=== PATIENT | female | born 1955 | race Caucasian/White ===

== ENCOUNTER 2016-12-18 19:02 | Emergency (ER) | payer OTHER, SELFPAY ==
[2016-12-18] MEDS ORDERED: Valium 5 MG PO ONE ×2 (19:13→20:14)
--- NOTE | 2016-12-18 19:19 | ERPHSYRPT ---
- History of Present Illness Time Seen by Provider: 12/18/16 19:06 Source: patient Exam Limitations: no limitations Physician History: PT RAN OUT OF HER KLONOPIN 3 DAYS AGO AND 2 DAYS AGO STARTED WITH LEFT ANTERIOR CHEST PAIN, SHORTNESS OF AIR, DIARRHEA, CHILLS, DIAPHORESIS AND COUGH PRODUCTIVE OF CLEAR-YELLOW PHLEGM. Allergies/Adverse Reactions: No Known Drug Allergies Allergy (Verified 12/18/16 19:18) Home Medications: Clonazepam 0.5 mg [Klonopin 0.5 MG] 0.5 mg PO BID 12/18/16 [History] Gabapentin [Neurontin] 600 mg PO TID 12/18/16 [History] Hydrocodone Bit/Acetaminophen [[place] 7.5-325 Tablet] 1 each PO Q4-6HPRN PRN 07/31 [History] Hx Tetanus, Diphtheria Vaccination/Date Given: No Hx Influenza Vaccination/Date Given: No Hx Pneumococcal Vaccination/Date Given: No - Review of Systems Constitutional: Chills Respiratory: Cough, Dyspnea Cardiac: Chest Pain Abdominal/Gastrointestinal: Diarrhea Psychological: Anxiety Endocrine: Excessive Sweating All Other Systems: Reviewed and Negative - Past Medical History Pertinent Past Medical History: Yes Neurological History: Peripheral Neuropathy ENT History: No Pertinent History Cardiac History: No Pertinent History Respiratory History: COPD Endocrine Medical History: No Pertinent History Musculoskeletal History: Other GI Medical History: No Pertinent History History: No Pertinent History Psycho-Social History: Anxiety, Depression Female Reproductive Disorders: No Pertinent History Other Medical History: chronic back pain - Past Surgical History Past Surgical History: Yes Neuro Surgical History: No Pertinent History Cardiac: No Pertinent History Respiratory: No Pertinent History Gastrointestinal: No Pertinent History Genitourinary: No Pertinent History Musculoskeletal: Orthopedic Surgery Female Surgical History: Tubal Ligation Other Surgical History: ankle - Social History Smoking Status: Current every day smoker How long have you smoked: 36 Exposure to second hand smoke: No Drug Use: none Patient Lives Alone: No - Female History Hx Now: No - Nursing Vital Signs Nursing Vital Signs: Initial Vital Signs Temperature 98.4 F 12/18/16 19:06 Pulse Rate 97 H 12/18/16 19:06 Respiratory Rate 22 12/18/16 19:06 Blood Pressure 178/89 12/18/16 19:06 O2 Sat by Pulse Oximetry 95 12/18/16 19:06 Pain Scale Pain Intensity 9 - Physical Exam General Appearance: alert, anxiety Eye Exam: PERRL/EOMI Ears, Nose, Throat Exam: TMs normal, pharynx normal, moist mucous membranes Neck Exam: normal inspection Respiratory Exam: lungs clear, airway intact Cardiovascular Exam: normal heart sounds Gastrointestinal/Abdomen Exam: soft, normal bowel sounds Back Exam: normal range of motion Extremity Exam: normal inspection, No pedal edema Neurologic Exam: alert, cooperative, other (ANXIOUS) Skin Exam: warm, dry - Course Nursing assessment & vital signs reviewed: Yes EKG Interpreted by Me: RATE ([id number]), Sinus Rhythm, NORMAL AXIS, NORMAL INTERVALS Ordered Tests: Active Orders 24 hr Category Date Time Status EKG-ER Only STAT Care 12/18/16 19:13 Active CHEST 2 VIEWS (PA AND LAT) Stat Exams 12/18/16 19:14 Taken AMYLASE Stat Lab 12/18/16 19:30 Completed CBC W DIFF Stat Lab 12/18/16 19:30 Completed CMP Stat Lab 12/18/16 19:30 Completed LIPASE Stat Lab 12/18/16 19:30 Completed MAGNESIUM Stat Lab 12/18/16 19:30 Completed NT PRO BNP Stat Lab 12/18/16 19:30 Completed TROPONIN Q3H Lab 12/18/16 19:30 Completed TROPONIN Q3H Lab 12/18/16 22:15 Ordered TROPONIN Q3H Lab 12/19/16 01:15 Ordered TROPONIN Q3H Lab 12/19/16 04:15 Ordered TROPONIN Q3H Lab 12/19/16 07:15 Ordered UA W/RFX UR CULTURE Stat Lab 12/18/16 20:10 Completed Urine Triage Profile Stat Lab 12/18/16 20:10 Received Medication Summary Generic Name Dose Route Start Last Admin Trade Name Freq PRN Reason Stop Dose Admin Gabapentin 600 mg 12/18/16 22:00 12/18/16 19:55 Neurontin 300 Mg PO 01/17/17 21:59 600 mg HS JESSICA Administration Discontinued Medications Generic Name Dose Route Start Last Admin Trade Name Freq PRN Reason Stop Dose Admin Diazepam 10 mg 12/18/16 19:13 12/18/16 19:23 Valium 5 Mg PO 12/18/16 19:14 10 mg STAT ONE Administration Diazepam Confirm 12/18/16 19:22 Valium 5 Mg Administered 12/18/16 19:23 Dose 10 mg .ROUTE .STK-MED ONE Diazepam 10 mg 12/18/16 20:14 Valium 5 Mg PO 12/18/16 20:15 STAT ONE Lab/Rad Data: Laboratory Result Diagrams 12/18/16 19:30 12/18/16 19:30 Laboratory Results 12/18/16 12/18/16 12/18/16 Range/Units 20:10 19:30 19:30 WBC (4.0-10.5) K/mm3 RBC (4.1-5.4) M/mm3 Hgb (12.0-16.0) gm/dl Hct (35-47) % MCV (78-100) fl MCH (26-32) pg MCHC (32-36) g/dl RDW (11.5-14.0) % Plt Count (150-450) K/mm3 MPV (6-9.5) fl Gran % (36.0-66.0) % Lymphocytes % (24.0-44.0) % Monocytes % (0.0-12.0) % Eosinophils % (0.00-5.0) % Basophils % (0.0-0.4) % Basophils # (0-0.4) Sodium 140 (136-145) mEq/L Potassium 3.7 (3.5-5.1) mEq/L Chloride 103 (98-107) mEq/L Carbon Dioxide 26.6 (21-32) mEq/L Anion Gap 14.5 (5-15) MEQ/L BUN 14 (9-20) mg/dL Creatinine 0.80 (0.55-1.30) mg/dl Estimated GFR > 60 ML/MIN Glucose 107 (70-110) MG/DL Calcium 9.4 (8.5-10.1) mg/dL Magnesium 2.0 (1.8-2.4) mg/dL Total Bilirubin 0.30 (0.2-1.0) mg/dL AST 31 (15-37) U/L ALT 34 (12-78) U/L Alkaline Phosphatase 90 (46-116) U/L Troponin I < 0.017 (0.000-0.056) ng/ml NT-Pro-B Natriuret Pep 158 H (0-125) pg/ml Serum Total Protein 8.0 (6.4-8.2) gm/dL Albumin 4.3 (3.4-5.0) g/dL Amylase 70 (25-115) U/L Lipase 177 (73-393) U/L Ur Collection Type CLEAN CATCH Urine Color YELLOW (YELLOW) Urine Appearance CLEAR (CLEAR) Urine pH 5.0 (5-6) Ur Specific [place] 1.010 (1.005-1.025) Urine Protein NEGATIVE (Negative) Urine Ketones NEGATIVE (NEGATIVE) Urine Blood NEGATIVE (0-5) Abhijeet/ul Urine Nitrite NEGATIVE (NEGATIVE) Urine Bilirubin NEGATIVE (NEGATIVE) Urine Urobilinogen NORMAL (0-1) mg/dL Ur Leukocyte Esterase NEGATIVE (NEGATIVE) Urine Glucose NEGATIVE (NEGATIVE) mg/dL Specimen Received 12/18/16:200912/18/16 Range/Units 19:30 WBC 9.0 (4.0-10.5) K/mm3 RBC 4.63 (4.1-5.4) M/mm3 Hgb 14.3 (12.0-16.0) gm/dl Hct 41.8 (35-47) % MCV 90.3 (78-100) fl MCH 30.9 (26-32) pg MCHC 34.2 (32-36) g/dl RDW 12.7 (11.5-14.0) % Plt Count 275 (150-450) K/mm3 MPV 10.2 H (6-9.5) fl Gran % 67.2 H (36.0-66.0) % Lymphocytes % 22.6 L (24.0-44.0) % Monocytes % 8.2 (0.0-12.0) % Eosinophils % 1.8 (0.00-5.0) % Basophils % 0.2 (0.0-0.4) % Basophils # 0.02 (0-0.4) Sodium (136-145) mEq/L Potassium (3.5-5.1) mEq/L Chloride (98-107) mEq/L Carbon Dioxide (21-32) mEq/L Anion Gap (5-15) MEQ/L BUN (9-20) mg/dL Creatinine (0.55-1.30) mg/dl Estimated GFR ML/MIN Glucose (70-110) MG/DL Calcium (8.5-10.1) mg/dL Magnesium (1.8-2.4) mg/dL Total Bilirubin (0.2-1.0) mg/dL AST (15-37) U/L ALT (12-78) U/L Alkaline Phosphatase (46-116) U/L Troponin I (0.000-0.056) ng/ml NT-Pro-B Natriuret Pep (0-125) pg/ml Serum Total Protein (6.4-8.2) gm/dL Albumin (3.4-5.0) g/dL Amylase (25-115) U/L Lipase (73-393) U/L Ur Collection Type Urine Color (YELLOW) Urine Appearance (CLEAR) Urine pH (5-6) Ur Specific [place] (1.005-1.025) Urine Protein (Negative) Urine Ketones (NEGATIVE) Urine Blood (0-5) Abhijeet/ul Urine Nitrite (NEGATIVE) Urine Bilirubin (NEGATIVE) Urine Urobilinogen (0-1) mg/dL Ur Leukocyte Esterase (NEGATIVE) Urine Glucose (NEGATIVE) mg/dL Specimen Received - Departure Time of Disposition: 20:20 Departure Disposition: Home Clinical Impression: ANXIETY, CHEST PAIN, PN, COPD, DEPRESSION Condition: Stable Critical Care Time: No Referrals: FERNANDA LARA [Primary Care Provider] - Instructions: Anxiety -- Adult, Chest Pain Additional Instructions: FOLLOW UP WITH PRIVATE DOCTOR TOMORROW.
[2016-12-18] MEDS ORDERED: Valium 5 MG ONE ×3 (19:22→20:54)
[2016-12-18 19:34] LABS: BASOPHIL % 0.2 % (0.0-0.4); Eosinophil % 1.8 % (0.00-5.0); Granulocytes % 67.2 % (36.0-66.0); Lymphocytes % 22.6 % (24.0-44.0); Mean Cell Volume 90.3 fl (78-100); Mean Corpuscular Hemoglobin 30.9 pg (26-32); Mean Platelet Volume 10.2 fl (6-9.5); Monocytes % 8.2 % (0.0-12.0); Platelet Count 275 K/mm3 (150-450); Red Blood Count 4.63 M/mm3 (4.1-5.4); Red Cell Distribution Width 12.7 % (11.5-14.0)
[2016-12-18] MEDS ORDERED: NEURONTIN 300 MG ONE (19:43)
[2016-12-18 20:00] LABS: ALBUMIN 4.3 g/dL (3.4-5.0); ALKALINE PHOSPHATASE 90 U/L (46-116); ANION GAP 14.5 MEQ/L (5-15); BLOOD UREA NITROGEN 14 mg/dL (9-20); CHLORIDE 103 mEq/L (98-107); Carbon Dioxide 26.6 mEq/L (21-32); Glucose 107 MG/DL (70-110); LIPASE 177 U/L (73-393); Potassium 3.7 mEq/L (3.5-5.1); SGOT/AST 31 U/L (15-37); SGPT/ALT 34 U/L (12-78); SODIUM 140 mEq/L (136-145)
[2016-12-18 20:16] LABS: Collection Type CLEAN CATCH; Glucose NEGATIVE (NEGATIVE); Leukocyte Esterase NEGATIVE (NEGATIVE)
[2016-12-18 20:17] LABS: ADD URINE CULTURE? NO (NO); Bilirubin NEGATIVE (NEGATIVE); Blood NEGATIVE Ery/ul (0-5); COMPLETE URINE MICROSCOPIC? NO
[2016-12-18 20:58] VITALS: BP 127/85; PULSE 84; O2SAT 95
[2016-12-18] MEDS ORDERED: NEURONTIN 300 MG PO SCH (22:00)
--- NOTE | 2016-12-19 16:10 | XRAY ---
Exam: Two-view chest from 12/18/2016 Comparison: AP portable chest film from 11/10/2015. Indication: Chest pain. Findings: The heart size and contour are normal. A few small granulomatous calcifications are seen within the sarah and right lower lung field representing no change. I also note some small subcarinal granulomatous calcifications. There is mild tortuosity of the descending thoracic aorta. The lungs are adequately expanded. No air space infiltrates, vascular congestion, pneumothorax, or pleural fluid is seen. No acute osseous process is seen. There is minimal convexity of the spine toward the right centered near the thoracolumbar junction. Impression: 1. 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 2. No infiltrates, pneumothorax, CHF, or other acute cardiopulmonary disease is seen.
== END 2016-12-18 21:00 | disposition home or self-care (01) ==
LOC: ED 19:02
DX: F41.9 Anxiety disorder, unspecified (principal); R07.9 Chest pain, unspecified; J18.9 Pneumonia, unspecified organism; J44.9 Chronic obstructive pulmonary disease, unspecified; F32.9 Major depressive disorder, single episode, unspecified; R05 Cough; R06.00 Dyspnea, unspecified; R19.7 Diarrhea, unspecified
CPT/HCPCS: 36415; 71020; 80053; 80307; 81002; 82150; 83690; 83735; 83880; 84484; 85025; 93005; 99284; A9270-GY

== ENCOUNTER 2017-11-28 17:31 | Emergency (ER) | payer OTHER ==
[2017-11-28] MEDS ORDERED: Ativan 2 MG/1 ML VIAL IV ONE (18:42)
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
[2017-11-28 19:03] LABS: BASOPHIL % 0.2 % (0.0-0.4); Basophil (Absolute #) 0.02 (0-0.4); Eosinophil % 2.5 % (0.00-5.0); Eosinophil (Absolute #) 0.21 (0-0.5); Granulocyte Absolute (ANC) 5.25 (1.4-6.9); Granulocytes % 63.5 % (36.0-66.0); Hematocrit 36.4 % (35-47); Hemoglobin 12.2 gm/dl (12.0-16.0); Lymphocyte (Absolute #) 1.98 (1.0-4.6); Lymphocytes % 23.9 % (24.0-44.0); Mean Cell Volume 93.1 fl (78-100); Mean Corpuscular Hemoglobin 31.2 pg (26-32); Mean Corpuscular Hgb Concent. 33.5 g/dl (32-36); Mean Platelet Volume 10.2 fl (6-9.5); Monocyte (Absolute #) 0.82 (0.0-1.3); Monocytes % 9.9 % (0.0-12.0); Platelet Count 184 K/mm3 (150-450); Red Blood Count 3.91 M/mm3 (4.1-5.4); Red Cell Distribution Width 12.5 % (11.5-14.0); White Blood Count 8.3 K/mm3 (4.0-10.5)
[2017-11-28 19:24] LABS: ALBUMIN 4.1 g/dL (3.5-5.0); ALKALINE PHOSPHATASE 61 U/L (38-126); ANION GAP 12.8 MEQ/L (5-15); BILIRUBIN,TOTAL < 0.10 mg/dL (0.2-1.3); BLOOD UREA NITROGEN 13 mg/dL (7-17); CHLORIDE 106 mmol/L (98-107); Calcium 9.2 mg/dL (8.4-10.2); Carbon Dioxide 28 mmol/L (22-30); Creatinine 1 0.55 mg/dL (0.52-1.04); Glucose 100 mg/dL (74-106); Potassium 3.8 mmol/L (3.5-5.1); SGOT/AST 31 U/L (14-36); SGPT/ALT 28 U/L (0-35); SODIUM 143 mmol/L (137-145); Total Protein 6.9 g/dL (6.3-8.2)
[2017-11-28 19:25] LABS: ACETAMINOPHEN < 10 ug/ml (10-30); ETHYL ALCOHOL < 10 mg/dL (0-10); SALICYLATE < 1.0 mg/dL (2-20)
[2017-11-28] MEDS ORDERED: Ativan 2 MG/1 ML VIAL ONE (19:41)
[2017-11-28] MEDS ORDERED: NORCO 5/325 MG PO ONE (20:53)
[2017-11-28] MEDS ORDERED: NORCO 5/325 MG ONE (20:56)
[2017-11-28 21:09] LABS: Amphetamine,Urine NEGATIVE (NEGATIVE); Barbiturate,Urine NEGATIVE (NEGATIVE); Benzodiazepine,Urine NEGATIVE (NEGATIVE); Cocaine,Urine NEGATIVE (NEGATIVE); Methadone,Urine NEGATIVE (NEGATIVE); Opiate,Urine NEGATIVE (NEGATIVE); PCP,Urine NEGATIVE (NEGATIVE); THC,Urine POSITIVE (NEGATIVE)
[2017-11-28 21:14] LABS: Appearance CLEAR (CLEAR); Bilirubin NEGATIVE (NEGATIVE); Blood TRACE NON-HEM Ery/ul (0-5); Glucose NEGATIVE (NEGATIVE); Ketones NEGATIVE (NEGATIVE); Leukocyte Esterase TRACE (NEGATIVE); Nitrite NEGATIVE (NEGATIVE); Protein,Urine Dip NEGATIVE (Negative); Urobilinogen NORMAL mg/dL (0-1)
[2017-11-28 21:15] LABS: Epithelial Cells RARE /HPF (FEW); RBC 0-2 /HPF (0-2); WBC 0-2 /HPF (0-5)
[2017-11-28 23:39] VITALS: BP 136/74; PULSE 78; O2SAT 97
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
== END 2017-11-28 23:58 | disposition short-term general hospital (02) ==
LOC: ED 17:31
DX: T14.91XA Suicide attempt, initial encounter (principal); S29.9XXA Unspecified injury of thorax, initial encounter; S39.92XA Unspecified injury of lower back, initial encounter; M54.2 Cervicalgia; G89.29 Other chronic pain; Z79.899 Other long term (current) drug therapy
CPT/HCPCS: 36000; 36415; 72072; 72100; 72125; 80053; 80307; 81000; 85025; 87077; 87086; 87186; 93005; 96374; 99285; G0481; J2060; L0172; A9270-GY; G0480

== ENCOUNTER 2019-04-17 17:03 | Emergency (ER) | payer OTHER ==
--- NOTE | 2019-04-17 17:18 | ERPHSYRPT ---
- History of Present Illness Source: patient Exam Limitations: no limitations Timing/Duration: week(s) Severity of Symptoms-Max: severe Severity of Symptoms-Current: severe Context related to: spouse Suicidal thoughts: other Associated Symptoms: anxiety, depressed, frustrated, No angry, No agitated Previous symptoms: same symptoms as today, no recent treatment Hx Tetanus, Diphtheria Vaccination/Date Given: Yes Hx Influenza Vaccination/Date Given: No Hx Pneumococcal Vaccination/Date Given: No <LALO ARRIAZA - Last Filed: 04/17/19 20:00> <CLUADIA GAY - Last Filed: 04/18/19 01:12> - History of Present Illness Time Seen by Provider: 04/17/19 17:15 Physician History: Patient has had increasing stressors, causing her anxiety and depression to increase, causing her to have suicidal ideation (LALO ARRIAZA) Allergies/Adverse Reactions: No Known Drug Allergies Allergy (Verified 12/18/16 19:18) Home Medications: Clonazepam 0.5 mg [Klonopin 0.5 MG] 0.5 mg PO BID 12/18/16 [History] Gabapentin [Neurontin] 600 mg PO TID 12/18/16 [History] Hydrocodone Bit/Acetaminophen [Gilbert 7.5-325 Tablet] 1 each PO Q4-6HPRN PRN 07/31 [History] - Past Medical History Pertinent Past Medical History: Yes Neurological History: Peripheral Neuropathy ENT History: No Pertinent History Cardiac History: No Pertinent History Respiratory History: COPD Endocrine Medical History: No Pertinent History Musculoskeletal History: Other GI Medical History: No Pertinent History History: No Pertinent History Psycho-Social History: Anxiety, Depression Female Reproductive Disorders: No Pertinent History Other Medical History: chronic back pain - Past Surgical History Past Surgical History: Yes Neuro Surgical History: No Pertinent History Cardiac: No Pertinent History Respiratory: No Pertinent History Gastrointestinal: No Pertinent History Genitourinary: No Pertinent History Musculoskeletal: Orthopedic Surgery Female Surgical History: Tubal Ligation Other Surgical History: ankle - Social History Smoking Status: Current every day smoker How long have you smoked: 36 Exposure to second hand smoke: No Drug Use: none Patient Lives Alone: No <LALO ARRIAZA - Last Filed: 04/17/19 20:00> - Review of Systems Constitutional: No Fever, No Chills Eyes: No Discharge, No Eye Pain Ears, Nose, & Throat: No Nose Discharge, No Mouth Swelling, No Painful Swallowing Respiratory: No Cough, No Dyspnea Cardiac: No Chest Pain, No Edema, No Syncope Abdominal/Gastrointestinal: No Abdominal Pain, No Nausea, No Vomiting, No Diarrhea Genitourinary Symptoms: No Dysuria, No Hematuria, No Flank Pain Musculoskeletal: No Back Pain, No Neck Pain Skin: No Rash Neurological: No Dizziness, No Focal Weakness, No Sensory Changes Psychological: Alcohol Abuse, Anxiety, Depression, Emotional Lability Endocrine: No Excessive Sweating Hematologic/Lymphatic: No Easy Bleeding, No Easy Bruising All Other Systems: Reviewed and Negative <LALO ARRIAZA - Last Filed: 04/17/19 20:00> - Physical Exam General Appearance: no apparent distress Eyes, Ears, Nose, Throat Exam: normal ENT inspection, moist mucous membranes Neck Exam: normal inspection, non-tender, supple Respiratory Exam: normal breath sounds, lungs clear, No respiratory distress Cardiovascular Exam: regular rate/rhythm, No edema Gastrointestinal/Abdominal Exam: soft, No tenderness, No distention Extremities Exam: normal inspection, normal range of motion, No evidence of injury, No edema Current Suicidality: denies suicide plan Neurological Exam: alert, manager linux II-XII nml as tested, oriented x 3 Skin Exam: normal color, warm, dry, No rash <LALO ARRIAZA - Last Filed: 04/17/19 20:00> - Nursing Vital Signs Nursing Vital Signs: Initial Vital Signs Temperature 98.7 F 04/17/19 17:06 Pulse Rate 102 H 04/17/19 17:06 Respiratory Rate 04/17/19 17:06 Blood Pressure 121/90 04/17/19 17:06 O2 Sat by Pulse Oximetry 96 04/17/19 17:06 Pain Scale Pain Intensity 0 - Course EKG Interpreted by Me: RATE (83), Sinus Rhythm, NORMAL AXIS, NORMAL INTERVALS, NORMAL QRS, NORMAL ST-T, ST Elev, Other (negative previous EKG for comparison) <LALO ARRIAZA - Last Filed: 04/17/19 20:00> Ordered Tests: Active Orders 24 hr Category Date Time Status EKG-ER Only STAT Care 04/17/19 17:18 Active Consult Tele-Health [Tele-Health Consult] ROUTINE Cons 04/17/19 19:04 Active ACETAMINOPHEN Stat Lab 04/17/19 17:35 Completed CBC W DIFF Stat Lab 04/17/19 17:35 Completed CMP Stat Lab 04/17/19 17:35 Completed ETHYL ALCOHOL Stat Lab 04/17/19 17:35 Completed ETHYL ALCOHOL Stat Lab 04/17/19 21:39 Completed MAGNESIUM Stat Lab 04/17/19 17:35 Completed SALICYLATE Stat Lab 04/17/19 17:35 Completed UA W/RFX UR CULTURE Stat Lab 04/17/19 17:51 Completed Urine Triage Profile Stat Lab 04/17/19 17:51 Completed Medication Summary Discontinued Medications Generic Name Dose Route Start Last Admin Trade Name Freq PRN Reason Stop Dose Admin Alprazolam 0.5 mg 04/17/19 23:33 04/17/19 23:44 Xanax 0.5 Mg PO 04/17/19 23:34 0.5 mg STAT ONE Administration Alprazolam Confirm 04/17/19 23:43 Xanax 0.5 Mg Administered 04/17/19 23:44 Dose 0.5 mg .ROUTE .STK-MED ONE Lab/Rad Data: Laboratory Result Diagrams 04/17/19 17:35 04/17/19 17:35 Laboratory Results 04/17/19 04/17/19 04/17/19 Range/Units 21:39 17:51 17:51 WBC (4.0-10.5) K/mm3 RBC (4.1-5.4) M/mm3 Hgb (12.0-16.0) gm/dl Hct (35-47) % MCV (78-100) fl MCH (26-32) pg MCHC (32-36) g/dl RDW (11.5-14.0) % Plt Count (150-450) K/mm3 MPV (6-9.5) fl Gran % (36.0-66.0) % Eos # (Auto) (0-0.5) Absolute Lymphs (auto) (1.0-4.6) Absolute Monos (auto) (0.0-1.3) Lymphocytes % (24.0-44.0) % Monocytes % (0.0-12.0) % Eosinophils % (0.00-5.0) % Basophils % (0.0-0.4) % Absolute Granulocytes (1.4-6.9) Basophils # (0-0.4) Sodium (137-145) mmol/L Potassium (3.5-5.1) mmol/L Chloride (98-107) mmol/L Carbon Dioxide (22-30) mmol/L Anion Gap (5-15) MEQ/L BUN (7-17) mg/dL Creatinine (0.52-1.04) mg/dL Estimated GFR ML/MIN Glucose (74-106) mg/dL Calcium (8.4-10.2) mg/dL Magnesium (1.6-2.3) mg/dL Total Bilirubin (0.2-1.3) mg/dL AST (14-36) U/L ALT (0-35) U/L Alkaline Phosphatase (38-126) U/L Serum Total Protein (6.3-8.2) g/dL Albumin (3.5-5.0) g/dL Urine Color STRAW (YELLOW) Urine Appearance CLEAR (CLEAR) Urine pH 6.0 (5-6) Ur Specific [place] 1.004 (1.005-1.025) Urine Protein NEGATIVE (Negative) Urine Ketones NEGATIVE (NEGATIVE) Urine Blood NEGATIVE (0-5) Abhijeet/ul Urine Nitrite NEGATIVE (NEGATIVE) Urine Bilirubin NEGATIVE (NEGATIVE) Urine Urobilinogen NEGATIVE (0-1) mg/dL Ur Leukocyte Esterase SMALL (NEGATIVE) Urine WBC (Auto) 3-5 (0-5) /HPF Urine RBC (Auto) NONE (0-2) /HPF U Epithel Cells (Auto) RARE (FEW) /HPF Urine Bacteria (Auto) NONE (NEGATIVE) /HPF Urine Mucus (Auto) SLIGHT (NEGATIVE) /HPF Urine Culture Reflexed NO (NO) Urine Glucose NEGATIVE (NEGATIVE) mg/dL Salicylates (2-20) mg/dL Urine Opiates Level NEGATIVE (NEGATIVE) Ur Methadone NEGATIVE (NEGATIVE) Acetaminophen (10-30) ug/ml Urine Barbiturates NEGATIVE (NEGATIVE) Ur Phencyclidine (PCP) NEGATIVE (NEGATIVE) Urine Amphetamine NEGATIVE (NEGATIVE) U Benzodiazepine Level NEGATIVE (NEGATIVE) Urine Cocaine NEGATIVE (NEGATIVE) Urine Marijuana (THC) NEGATIVE (NEGATIVE) Ethyl Alcohol < 10 (0-10) mg/dL 04/17/19 04/17/19 04/17/19 Range/Units 17:35 17:35 17:35 WBC 8.2 (4.0-10.5) K/mm3 RBC 4.48 (4.1-5.4) M/mm3 Hgb 14.0 (12.0-16.0) gm/dl Hct 41.6 (35-47) % MCV 92.9 (78-100) fl MCH 31.3 (26-32) pg MCHC 33.7 (32-36) g/dl RDW 12.6 (11.5-14.0) % Plt Count 248 (150-450) K/mm3 MPV 10.5 H (6-9.5) fl Gran % 60.5 (36.0-66.0) % Eos # (Auto) 0.24 (0-0.5) Absolute Lymphs (auto) 2.30 (1.0-4.6) Absolute Monos (auto) 0.69 (0.0-1.3) Lymphocytes % 28.0 (24.0-44.0) % Monocytes % 8.4 (0.0-12.0) % Eosinophils % 2.9 (0.00-5.0) % Basophils % 0.2 (0.0-0.4) % Absolute Granulocytes 4.95 (1.4-6.9) Basophils # 0.02 (0-0.4) Sodium 144 (137-145) mmol/L Potassium 3.9 (3.5-5.1) mmol/L Chloride 109 H (98-107) mmol/L Carbon Dioxide 25 (22-30) mmol/L Anion Gap 13.6 (5-15) MEQ/L BUN 10 (7-17) mg/dL Creatinine 0.54 (0.52-1.04) mg/dL Estimated GFR > 60.0 ML/MIN Glucose 101 (74-106) mg/dL Calcium 9.6 (8.4-10.2) mg/dL Magnesium 2.2 (1.6-2.3) mg/dL Total Bilirubin 0.30 (0.2-1.3) mg/dL AST 32 (14-36) U/L ALT 20 (0-35) U/L Alkaline Phosphatase 67 (38-126) U/L Serum Total Protein 8.3 H (6.3-8.2) g/dL Albumin 4.6 (3.5-5.0) g/dL Urine Color (YELLOW) Urine Appearance (CLEAR) Urine pH (5-6) Ur Specific [place] (1.005-1.025) Urine Protein (Negative) Urine Ketones (NEGATIVE) Urine Blood (0-5) Abhijeet/ul Urine Nitrite (NEGATIVE) Urine Bilirubin (NEGATIVE) Urine Urobilinogen (0-1) mg/dL Ur Leukocyte Esterase (NEGATIVE) Urine WBC (Auto) (0-5) /HPF Urine RBC (Auto) (0-2) /HPF U Epithel Cells (Auto) (FEW) /HPF Urine Bacteria (Auto) (NEGATIVE) /HPF Urine Mucus (Auto) (NEGATIVE) /HPF Urine Culture Reflexed (NO) Urine Glucose (NEGATIVE) mg/dL Salicylates 3.8 (2-20) mg/dL Urine Opiates Level (NEGATIVE) Ur Methadone (NEGATIVE) Acetaminophen < 10 L (10-30) ug/ml Urine Barbiturates (NEGATIVE) Ur Phencyclidine (PCP) (NEGATIVE) Urine Amphetamine (NEGATIVE) U Benzodiazepine Level (NEGATIVE) Urine Cocaine (NEGATIVE) Urine Marijuana (THC) (NEGATIVE) Ethyl Alcohol 18 H (0-10) mg/dL <LALO ARRIAZA - Last Filed: 04/17/19 20:00> - Progress Progress: improved Counseled pt/family regarding: diagnosis, need for follow-up (pt talked to psych at [facility]. agreed to do outpt care. doesnt meet criteria for inpt psych care. will d/c. was given one xanax 0.5 while here due to her getting extremely anxious) <CLAUDIA GAY - Last Filed: 04/18/19 01:12> - Progress Progress Note: 04/17/19 19:54 Discussed the patient with Dr Gay, [facility] emergency department attending, and care was tranferred to Dr Gay. Dr Gay will determine final disposition of the patient after evaluation of labs, consultation and patient's status. (LALO ARRIAZA) <LALO ARRIAZA - Last Filed: 04/17/19 20:00> - Departure Departure Disposition: Home Critical Care Time: No <CLAUDIA GAY - Last Filed: 04/18/19 01:12> - Departure Clinical Impression: Elevated blood pressure reading without diagnosis of hypertension Condition: Stable Referrals: FERNANDA LARA [Primary Care Provider] - Instructions: Anxiety, Adult (DC)
[2019-04-17 17:39] LABS: Absolute Neutrophil Ct (ANC) 4.95 (1.4-6.9); BASOPHIL % 0.2 % (0.0-0.4); Basophil (Absolute #) 0.02 (0-0.4); Eosinophil % 2.9 % (0.00-5.0); Eosinophil (Absolute #) 0.24 (0-0.5); Hematocrit 41.6 % (35-47); Mean Cell Volume 92.9 fl (78-100); Mean Corpuscular Hemoglobin 31.3 pg (26-32); Mean Corpuscular Hgb Concent. 33.7 g/dl (32-36); Mean Platelet Volume 10.5 fl (6-9.5); Monocyte (Absolute #) 0.69 (0.0-1.3); Monocytes % 8.4 % (0.0-12.0); Neutrophil % 60.5 % (36.0-66.0); Platelet Count 248 K/mm3 (150-450); Red Blood Count 4.48 M/mm3 (4.1-5.4); Red Cell Distribution Width 12.6 % (11.5-14.0); White Blood Count 8.2 K/mm3 (4.0-10.5)
[2019-04-17 17:53] LABS: ALBUMIN 4.6 g/dL (3.5-5.0); ALKALINE PHOSPHATASE 67 U/L (38-126); ANION GAP 13.6 MEQ/L (5-15); BLOOD UREA NITROGEN 10 mg/dL (7-17); CHLORIDE 109 mmol/L (98-107); Calcium 9.6 mg/dL (8.4-10.2); Carbon Dioxide 25 mmol/L (22-30); Creatinine 1 0.54 mg/dL (0.52-1.04); ETHYL ALCOHOL 18 mg/dL (0-10); Glucose 101 mg/dL (74-106); Potassium 3.9 mmol/L (3.5-5.1); SALICYLATE 3.8 mg/dL (2-20); SGOT/AST 32 U/L (14-36); SGPT/ALT 20 U/L (0-35); SODIUM 144 mmol/L (137-145); Total Protein 8.3 g/dL (6.3-8.2)
[2019-04-17 17:58] LABS: ACETAMINOPHEN < 10 ug/ml (10-30)
[2019-04-17 18:24] LABS: Amphetamine,Urine NEGATIVE (NEGATIVE); Barbiturate,Urine NEGATIVE (NEGATIVE); Benzodiazepine,Urine NEGATIVE (NEGATIVE); Cocaine,Urine NEGATIVE (NEGATIVE); Methadone,Urine NEGATIVE (NEGATIVE); Opiate,Urine NEGATIVE (NEGATIVE); PCP,Urine NEGATIVE (NEGATIVE); THC,Urine NEGATIVE (NEGATIVE)
[2019-04-17 18:26] LABS: Appearance CLEAR (CLEAR); Bilirubin NEGATIVE (NEGATIVE); Blood NEGATIVE Ery/ul (0-5); Epithelial Cells RARE /HPF (FEW); Glucose NEGATIVE (NEGATIVE); Ketones NEGATIVE (NEGATIVE); Leukocyte Esterase SMALL (NEGATIVE); Mucus SLIGHT /HPF (NEGATIVE); Nitrite NEGATIVE (NEGATIVE); Protein,Urine Dip NEGATIVE (Negative); Specific Gravity 1.004 (1.005-1.025); Urobilinogen NEGATIVE mg/dL (0-1)
[2019-04-17] MEDS ORDERED: xanAX 0.5 MG PO ONE (23:33)
[2019-04-17] MEDS ORDERED: xanAX 0.5 MG ONE (23:43)
[2019-04-17 23:58] VITALS: BP 136/102; PULSE 79; O2SAT 98
== END 2019-04-18 02:23 | disposition home or self-care (01) ==
LOC: ED 17:03
DX: R03.0 Elevated blood-pressure reading, without diagnosis of hypertension (principal); Z79.01 Long term (current) use of anticoagulants; Z79.891 Long term (current) use of opiate analgesic
CPT/HCPCS: 36415; 80053; 80307; 81001; 83735; 85025; 93005; 99284; G0481; A9270-GY; G0480

== ENCOUNTER 2020-09-12 01:17 | Emergency (ER) | payer OTHER ==
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
[2020-09-12] MEDS ORDERED: Ativan 2 MG/1 ML VIAL IM ONE (01:50)
[2020-09-12] MEDS ORDERED: Ativan 2 MG/1 ML VIAL ONE (01:56)
[2020-09-12 02:18] VITALS: BP 152/95
[2020-09-12 03:05] VITALS: PULSE 92; O2SAT 98
== END 2020-09-12 03:00 | disposition home or self-care (01) ==
LOC: ED 01:17
DX: F41.9 Anxiety disorder, unspecified (principal)
CPT/HCPCS: 96372; 99284; J2060

== ENCOUNTER 2020-10-05 10:13 | Emergency (ER) | payer OTHER ==
[2020-10-05] MEDS ORDERED: xanAX 0.5 MG PO ONE (10:26)
[2020-10-05] MEDS ORDERED: xanAX 0.5 MG ONE (10:33)
[2020-10-05 10:50] LABS: Absolute Neutrophil Ct (ANC) 6.52 (1.4-6.9); BASOPHIL % 0.2 % (0.0-0.4); Basophil (Absolute #) 0.02 (0-0.4); Eosinophil (Absolute #) 0.09 (0-0.5); Hematocrit 44.1 % (35-47); Hemoglobin 14.9 gm/dl (12.0-16.0); Lymphocytes % 19.7 % (24.0-44.0); Mean Cell Volume 89.6 fl (78-100); Mean Corpuscular Hemoglobin 30.3 pg (26-32); Mean Corpuscular Hgb Concent. 33.8 g/dl (32-36); Mean Platelet Volume 9.5 fl (7.5-11.0); Monocyte (Absolute #) 0.69 (0.0-1.3); Monocytes % 7.6 % (0.0-12.0); Neutrophil % 71.5 % (36.0-66.0); Platelet Count 360 K/mm3 (150-450); Red Blood Count 4.92 M/mm3 (4.1-5.4); Red Cell Distribution Width 12.7 % (11.5-14.0); White Blood Count 9.1 K/mm3 (4.0-10.5)
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
[2020-10-05 11:02] LABS: ACETAMINOPHEN < 10 ug/ml (10-30); ALBUMIN 4.9 g/dL (3.5-5.0); ALKALINE PHOSPHATASE 85 U/L (38-126); ANION GAP 15.2 MEQ/L (5-15); BLOOD UREA NITROGEN 9 mg/dL (7-17); CHLORIDE 101 mmol/L (98-107); Calcium 9.8 mg/dL (8.4-10.2); Carbon Dioxide 26 mmol/L (22-30); Creatinine 1 0.63 mg/dL (0.52-1.04); EST GLOMERULAR FILTRATION RATE > 60.0 ML/MIN; ETHYL ALCOHOL < 10 mg/dL (0-10); Glucose 128 mg/dL (74-106); Potassium 3.7 mmol/L (3.5-5.1); SALICYLATE < 1.0 mg/dL (2-20); SGOT/AST 30 U/L (14-36); SGPT/ALT 22 U/L (0-35); SODIUM 139 mmol/L (137-145); Total Protein 8.4 g/dL (6.3-8.2)
[2020-10-05 11:07] LABS: Amphetamine,Urine NEGATIVE (NEGATIVE); Barbiturate,Urine NEGATIVE (NEGATIVE); Benzodiazepine,Urine NEGATIVE (NEGATIVE); Cocaine,Urine NEGATIVE (NEGATIVE); Methadone,Urine NEGATIVE (NEGATIVE); Opiate,Urine NEGATIVE (NEGATIVE); PCP,Urine NEGATIVE (NEGATIVE); THC,Urine POSITIVE (NEGATIVE)
[2020-10-05 11:09] LABS: Appearance CLEAR (CLEAR); Glucose NEGATIVE (NEGATIVE); Ketones TRACE (NEGATIVE); Leukocyte Esterase NEGATIVE (NEGATIVE); Nitrite NEGATIVE (NEGATIVE); Ph 6.5 (5-6); Protein,Urine Dip 30 (Negative); Urobilinogen 0.2 mg/dL (0-1)
[2020-10-05 11:10] LABS: Bilirubin NEGATIVE (NEGATIVE)
[2020-10-05 11:14] LABS: Bacteria FEW /HPF (NEGATIVE); Blood TRACE LYSED Ery/ul (0-5); Mucus MODERATE /HPF (NEGATIVE); RBC 0-2 /HPF (0-2)
[2020-10-05 15:12] VITALS: BP 158/100; PULSE 78
[2020-10-05] MEDS ORDERED: NEURONTIN 300 MG PO STA (15:18)
[2020-10-05] MEDS ORDERED: KLONOPIN PO STA (15:38)
[2020-10-05 15:39] VITALS: O2SAT 98
[2020-10-05] MEDS ORDERED: NEURONTIN 300 MG PO SCH (22:00)
== END 2020-10-05 16:02 | disposition home or self-care (01) ==
LOC: ED 10:13
DX: F12.90 Cannabis use, unspecified, uncomplicated (principal); R45.851 Suicidal ideations; Z91.19 Patient's noncompliance with other medical treatment and regimen; F41.1 Generalized anxiety disorder; Z76.0 Encounter for issue of repeat prescription
CPT/HCPCS: 36000; 36415; 80053; 80307; 81001; 84484; 85025; 87077; 87086; 87186; 93005; 99284; A9270-GY; G0480

== ENCOUNTER 2021-04-02 10:46 | Emergency (ER) | payer OTHER ==
[2021-04-02 12:19] LABS: Hematocrit 42.9 % (35-47); Hemoglobin 14.1 gm/dl (12.0-16.0); Mean Cell Volume 94.1 fl (78-100); Mean Corpuscular Hemoglobin 30.9 pg (26-32); Mean Corpuscular Hgb Concent. 32.9 g/dl (32-36); Mean Platelet Volume 10.9 fl (7.5-11.0); Platelet Count 317 K/mm3 (150-450); Red Blood Count 4.56 M/mm3 (4.1-5.4); Red Cell Distribution Width 13.1 % (11.5-14.0); White Blood Count 9.9 K/mm3 (4.0-10.5)
[2021-04-02 12:24] LABS: ACETAMINOPHEN 14 ug/ml (10-30); ALBUMIN 4.8 g/dL (3.5-5.0); ALKALINE PHOSPHATASE 87 U/L (38-126); ANION GAP 14.4 MEQ/L (5-15); BLOOD UREA NITROGEN 11 mg/dL (7-17); CHLORIDE 101 mmol/L (98-107); Calcium 10.1 mg/dL (8.4-10.2); Carbon Dioxide 30 mmol/L (22-30); Creatinine 1 0.63 mg/dL (0.52-1.04); EST GLOMERULAR FILTRATION RATE > 60.0 ML/MIN; ETHYL ALCOHOL < 10 mg/dL (0-10); Glucose 111 mg/dL (74-106); Potassium 4.5 mmol/L (3.5-5.1); SALICYLATE < 1.0 mg/dL (2-20); SGOT/AST 42 U/L (14-36); SGPT/ALT 28 U/L (0-35); SODIUM 141 mmol/L (137-145); Total Protein 7.8 g/dL (6.3-8.2)
[2021-04-02 13:22] LABS: Appearance CLEAR (CLEAR); Bilirubin NEGATIVE (NEGATIVE); Blood NEGATIVE Ery/ul (0-5); Glucose NEGATIVE (NEGATIVE); Ketones NEGATIVE (NEGATIVE); Leukocyte Esterase NEGATIVE (NEGATIVE); Mucus SLIGHT /HPF (NEGATIVE); Nitrite NEGATIVE (NEGATIVE); Protein,Urine Dip NEGATIVE (Negative); Specific Gravity 1.005 (1.005-1.025); Urobilinogen NEGATIVE mg/dL (0-1)
[2021-04-02] MEDS ORDERED: NEURONTIN 300 MG PO STA (13:43)
[2021-04-02 13:44] LABS: Amphetamine,Urine NEGATIVE (NEGATIVE); Barbiturate,Urine NEGATIVE (NEGATIVE); Benzodiazepine,Urine POSITIVE (NEGATIVE); Cocaine,Urine NEGATIVE (NEGATIVE); Methadone,Urine NEGATIVE (NEGATIVE); Opiate,Urine NEGATIVE (NEGATIVE); PCP,Urine NEGATIVE (NEGATIVE); THC,Urine NEGATIVE (NEGATIVE)
[2021-04-02] MEDS ORDERED: Valium 5 MG PO ONE (13:45)
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
[2021-04-02] MEDS ORDERED: Valium 5 MG ONE (13:51)
[2021-04-02 14:16] VITALS: BP 144/81
[2021-04-02] MEDS ORDERED: Nicoderm CQ 21 MG TOP ONE (14:54)
[2021-04-02 16:44] LABS: BAND 2 % (0.0-2.0); Eosinophil 3 % (0.00-3.0); Lymphocytes 10 % (24-44); Monocyte 8 % (0.0-12.0); Neutrophils 77 % (36.0-66.0); Platelet Estimate NORMAL (NORMAL); Total Cells Counted 100
[2021-04-02 18:10] VITALS: O2SAT 96
[2021-04-02 20:21] VITALS: PULSE 92
== END 2021-04-02 20:40 | disposition home or self-care (01) ==
LOC: ED 10:46
DX: F32.A Depression, unspecified (principal); F41.9 Anxiety disorder, unspecified; Z63.0 Problems in relationship with spouse or partner; Z72.0 Tobacco use
CPT/HCPCS: 36415; 80053; 80307; 81001; 85025; 90791; 99284; Q3014; A9270-GY; G0480

== ENCOUNTER 2021-04-29 22:53 | Emergency (ER) | payer OTHER ==
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
[2021-04-29 23:52] LABS: Hematocrit 42.2 % (35-47); Hemoglobin 13.9 gm/dl (12.0-16.0); Mean Cell Volume 92.7 fl (78-100); Mean Corpuscular Hemoglobin 30.5 pg (26-32); Mean Corpuscular Hgb Concent. 32.9 g/dl (32-36); Mean Platelet Volume 9.8 fl (7.5-11.0); Platelet Count 256 K/mm3 (150-450); Red Blood Count 4.55 M/mm3 (4.1-5.4); Red Cell Distribution Width 13.3 % (11.5-14.0); White Blood Count 7.2 K/mm3 (4.0-10.5)
[2021-04-30 00:15] LABS: ACETAMINOPHEN < 10 ug/ml (10-30); ALBUMIN 4.3 g/dL (3.5-5.0); ALKALINE PHOSPHATASE 72 U/L (38-126); ANION GAP 10.6 MEQ/L (5-15); BLOOD UREA NITROGEN 7 mg/dL (7-17); CHLORIDE 109 mmol/L (98-107); Calcium 8.9 mg/dL (8.4-10.2); Carbon Dioxide 30 mmol/L (22-30); Creatinine 1 0.62 mg/dL (0.52-1.04); EST GLOMERULAR FILTRATION RATE > 60.0 ML/MIN; ETHYL ALCOHOL 159 mg/dL (0-10); Glucose 116 mg/dL (74-106); Potassium 3.8 mmol/L (3.5-5.1); SGOT/AST 30 U/L (14-36); SGPT/ALT 21 U/L (0-35); SODIUM 146 mmol/L (137-145); Total Protein 7.3 g/dL (6.3-8.2)
[2021-04-30 00:52] LABS: Eosinophil 4 % (0.00-3.0); Lymphocytes 32 % (24-44); Monocyte 3 % (0.0-12.0); Neutrophils 61 % (36.0-66.0); Platelet Estimate NORMAL (NORMAL); Total Cells Counted 100
[2021-04-30 01:41] LABS: Appearance CLEAR (CLEAR); Bilirubin NEGATIVE (NEGATIVE); Blood NEGATIVE Ery/ul (0-5); Glucose NEGATIVE (NEGATIVE); Ketones NEGATIVE (NEGATIVE); Leukocyte Esterase NEGATIVE (NEGATIVE); Nitrite NEGATIVE (NEGATIVE); Protein,Urine Dip NEGATIVE (Negative); Specific Gravity 1.004 (1.005-1.025); Urobilinogen NEGATIVE mg/dL (0-1)
[2021-04-30 01:56] LABS: Amphetamine,Urine NEGATIVE (NEGATIVE); Barbiturate,Urine NEGATIVE (NEGATIVE); Benzodiazepine,Urine POSITIVE (NEGATIVE); Cocaine,Urine NEGATIVE (NEGATIVE); Methadone,Urine NEGATIVE (NEGATIVE); Opiate,Urine NEGATIVE (NEGATIVE); PCP,Urine NEGATIVE (NEGATIVE); THC,Urine POSITIVE (NEGATIVE)
[2021-04-30] MEDS ORDERED: NEURONTIN 300 MG ONE (04:12)
[2021-04-30] MEDS ORDERED: Valium 5 MG ONE (06:07)
[2021-04-30] MEDS ORDERED: Valium 5 MG PO ONE (06:10)
[2021-04-30 07:23] LABS: INFLUENZA A NEGATIVE (NEGATIVE); INFLUENZA B NEGATIVE (NEGATIVE); RESPIRATORY SYNCTIAL VIRUS NEGATIVE (Negative); SARS-CoV-2 Xpert Express NEGATIVE (NEGATIVE)
[2021-04-30 07:44] VITALS: BP 123/86; PULSE 88; O2SAT 96
[2021-04-30] MEDS ORDERED: NEURONTIN 300 MG PO SCH (22:00)
== END 2021-04-30 08:27 | disposition short-term general hospital (02) ==
LOC: ED 22:53
DX: R45.851 Suicidal ideations (principal); F10.120 Alcohol abuse with intoxication, uncomplicated; Y90.6 Blood alcohol level of 120-199 mg/100 ml; Z72.0 Tobacco use; Z63.0 Problems in relationship with spouse or partner
CPT/HCPCS: 0241U; 36415; 80053; 80307; 81001; 85025; 99285; A9270-GY; G0480